=== PATIENT | male | born 1970 | race Caucasian/White ===

== ENCOUNTER 2023-11-11 07:24 | Day surgery (SDC) | payer OTHER ==
[~2023-11-11] VITALS: Ht 167.6 cm; Wt 72.6 kg
[2023-11-11] MEDS ORDERED: MEPERIDINE 100 MG INJ. 100 MG/ML VIAL ONE (08:16)
[2023-11-11] MEDS ORDERED: MIDAZOLAM HCL 5 MG/5 ML VIAL ONE (08:16)
[2023-11-11 12:36] VITALS: O2SAT 99
[2023-11-11 15:27] VITALS: BP_SYST 91; PULSE 67; RESP 18; TEMP 98
== END 2023-11-11 11:10 | disposition home or self-care (01) ==
LOC: SDS 07:24 → SMU 07:25 → SDS 11:10
PROVIDERS: ATTEND Student in an Organized Health Care Education/Training Program
DX: R19.5 Other fecal abnormalities (principal); K64.8 Other hemorrhoids; K64.4 Residual hemorrhoidal skin tags; Z95.1 Presence of aortocoronary bypass graft; Z79.82 Long term (current) use of aspirin; Z79.899 Other long term (current) drug therapy
CPT/HCPCS: 45378; 99152; G0378; J2250; J2175